=== PATIENT | female | born 1940 | race Caucasian/White ===

== ENCOUNTER 2023-03-31 11:26 | Emergency (ER) | payer MEDICARE, OTHER, SELFPAY ==
[2023-03-31 11:57] VITALS: BP 126/82
[2023-03-31 13:19] VITALS: BP 132/72
--- NOTE | 2023-03-31 14:16 | ED.GENMED ---
History of Present Illness
General
Chief Complaint: Fall
Time Seen by Provider: 03/31/23 13:00
Travel History
Have you had any contact with someone who has COVID-19?: No
Do you have any symptoms of coronavirus? Fever > 100 degrees, chills, cough, shortness of breath, sore throat, loss of taste or smell, muscle aches, or headache?: No
History of Present Illness
History of Present Illness:
83-year-old female with history of dementia presents to the emergency department with her for evaluation after mechanical fall. She apparently was walking out of a restaurant and tripped onto the asphalt and struck her face on the ground.
She braced her fall with her hands. She was able to get up and was able to ambulate afterward. She currently denies any complaints. There is a small laceration to the right upper lip with no active bleeding. Is not on any blood thinners
Past History
Past History
ED Past Medical History: HTN, Hypercholesterolemia and Other (Glaucoma, pneumonia, glaucoma, anemia)
ED Past Surgical History: Other (Cataract surgery,carpal tunnel)
Social History
Tobacco: Non-smoker
Alcohol: None
Drug: None
Personal:
Living: with family
Employment: Retired
Review of Systems
Review of Systems
Allergies reviewed?: Yes
All Other Systems: ROS reviewed and negative except as documented in HPI and ROS
Phy Exam
Physical Exam
Physical Exam:
GEN: Well appearing, NAD, WDWN
Eyes: PERRLA, EOMs intact, no scleral icterus
HENT: NCAT, oral mucosa moist, no midline cervical spine tenderness
Lungs: CTAB, no wheezes, rales, rhonchi, normal chest wall excursion
Cardiac: RRR, no M/R/G, no peripheral edema. Radial pulses 2+ bilat
Abdomen: S, NT, ND, NABS, no masses or hepatosplenomegaly
Neuro: Alert, oriented to baseline, follows commands, moves all extremities freely
MSK: No gross deformity or ecchymosis. No edema. No digital clubbing
Skin: No rashes, petechiae. Normal color, no pallor or jaundice.
Psych: Calm, cooperative, proper hygiene
Course
Orders/Labs/Results
Orders:
Orders
03/31/23 13:09
CT Head W/o Iv Contrast Urgent
Comment:
Reason For Exam: head trauma
03/31/23 15:25
US Pelvis Only (non-obstetric) Urgent
Comment:
Reason For Exam: vaginal bleeding
03/31/23 15:34
Complete Blood Count/With Diff Urgent
Comprehensive Metabolic Panel Urgent
Abnormal Lab Results
03/31/23
15:34
RBC 4.07 L 10^6/uL
(4.20-5.40)
Hgb 11.7 L g/dL
(12.0-16.0)
Hct 35.5 L %
(37.0-47.0)
Absolute Monos (auto) 0.7 H 10^3/uL
(0.1-0.6)
Monocytes % 10.0 H %
(1.7-9.3)
Total Protein 6.2 L g/dl
(6.3-8.2)
Albumin 3.0 L g/dl
(3.5-5.0)
03/31/23 15:34
03/31/23 15:34
Vital Signs
Initial and Last Documented VS:
Initial Vital Signs
Temp Pulse Resp BP Pulse Ox
98.9 F 89 20 126/82 99
03/31/23 11:57 03/31/23 11:57 03/31/23 11:57 03/31/23 11:57 03/31/23 11:57
Last Documented Vital Signs
Temp Pulse Resp BP Pulse Ox
98.9 F 81 16 134/77 97
03/31/23 11:57 03/31/23 17:31 03/31/23 17:31 03/31/23 17:31 03/31/23 17:31
MDM/Problems Addressed
MDM/Problems Addressed:
Ultrasound shows no evidence for clear malignancy however limited due to not being performed transvaginally. Recommend outpatient HEAD OF HUM[employer] RESOURCES follow-up. In regards to the fall she had a minor head injury with a negative CT scan.
*Critical Care Note
Total Time (30-74mins, 75-104mins- exclusive of procedures): Not Applicable
Update Note
Update Note:
1525: Pt reassessed, noted to have significant amount of vaginal bleeding. No evidence of external trauma to the pelvis or groin. Doubt this is related to trauma based on her mechanism. Will check labs and pelvic US
ED Attending Note
-
Portions of this chart may have been created with voice recognition software.� Occasional wrong word or��sound alike� substitutions may have occurred due to the inherent limitations of voice recognition software.
Discharge Plan
Departure
Patient Disposition: Home (Routine Discharge)
Date of Disposition: 03/31/23
Time of Disposition: 18:51
Patient with high blood pressure during this ER visit?: No
Discharge Problem:
Fall, Laceration of lip, Abnormal vaginal bleeding
Instructions: Laceration Repair With Glue (DC)
Prescriptions:
No Action
vitamins-lipotropics 1 TAB tablet
1 tab PO DAILY
calcium carbonate-vitamin D2 1 EACH tablet
1 tab PO DAILY
losartan 50 MG tablet
50 mg PO DAILY
atorvastatin 20 MG tablet
20 mg PO DAILY
raloxifene 60 MG tablet
60 mg PO DAILY
timolol maleate 1 DROP drops
1 drp BOTH EYES BID
glucosamine-chondroitin 1 EACH capsule
1 ea PO DAILY
multivitamin with folic acid [Tab-A-Sukhi] 1 TABLET tablet
1 tab PO DAILY
donepezil 5 MG tablet
5 mg PO HS Qty: 30 0RF
Referrals:
Ange Barrera MD [Family Provider] -
Benito Pascual MD [Active] -
Activity Restrictions/Additional Instructions:
The ultrasound was slightly abnormal however not diagnostic. Please follow-up with gynecology for further assessment
Interventions
Interventions:
*Risk Screen - Suicide Last Done: 03/31/23 12:25
*General Assessment Last Done: 03/31/23 12:25
*Neglect/Abuse Screening Last Done: 03/31/23 12:25
*ED COVID-19 Vaccine History Last Done: 03/31/23 12:25
ED-Musculoskeletal Assessment Last Done: 03/31/23 12:26
ED- Neurological Assessment Last Done: 03/31/23 12:26
ED-Skin Assessment Last Done: 03/31/23 12:26
--- NOTE | 2023-03-31 15:40 | EDRN ---
Pt noted to have some vaginal bleeding, denies falling on her bottom, denies hx of vaginal bleeding, denies any pain. Labs sent, pt is awaiting ultrasound.
[2023-03-31 15:43] VITALS: BP 140/64
[2023-03-31 16:00] LABS: % Basophils 0.9 % (0-2); % Eosinophils 1.4 % (0-6); % Immature Granulocytes 0.3 % (0-0.5); % Neutrophils 51.4 % (42.2-75.2); Absolute Basophils 0.1 10^3/uL (0-0.2); Absolute Eosinophils 0.1 10^3/uL (0-0.7); Absolute Lymphocytes 2.4 10^3/uL (1.2-3.4); Absolute Monocytes 0.7 10^3/uL (0.1-0.6); Absolute Neutrophils 3.4 10^3/uL (1.4-6.5); Hematocrit 35.5 % (37.0-47.0); Hemoglobin 11.7 g/dL (12.0-16.0); Mean Corpuscular Hgb 28.7 pg (27.0-31.0); Mean Corpuscular Volume 87.2 fL (81.0-99.0); Mean Platelet Volume 8.4 fL (7.4-10.4); Nucleated Red Blood Cells % 0 %; Platelet Count 298 10^3/uL (130-400); Red Blood Cell Count 4.07 10^6/uL (4.20-5.40); Red Cell Dist. Width 13.4 % (11.5-14.5); White Blood Cell Count 6.6 10^3/uL (4.8-10.8)
[2023-03-31 16:13] LABS: ALT (SGPT) 11 U/L (0-35); AST (SGOT) 21 U/L (14-36); Alkaline Phosphatase 96 U/L (38-126); Blood Urea Nitrogen 10 mg/dl (7-17); Calcium 8.9 mg/dl (8.4-10.2); Carbon Dioxide 28 mmol/L (22-30); Chloride 101 mmol/L (98-107); Glucose 80 mg/dl (70-99); Potassium 3.7 mmol/L (3.5-5.1); Sodium 136 mmol/L (135-145); Total Bilirubin 0.8 mg/dl (0.2-1.3); Total Protein 6.2 g/dl (6.3-8.2); eGFR > 60.00
[2023-03-31 17:31] VITALS: BP 134/77
== END 2023-03-31 19:23 | disposition home or self-care (01) ==
LOC: EMR 11:26
PROVIDERS: Physician Assistant; EMERGENCY PHYSICIAN Student in an Organized Health Care Education/Training Program; FAMILY PHYSICIAN Family Medicine
DX: S01.511A Laceration without foreign body of lip, initial encounter (principal); S09.90XA Unspecified injury of head, initial encounter; N93.9 Abnormal uterine and vaginal bleeding, unspecified; W01.0XXA Fall on same level from slipping, tripping and stumbling without subsequent striking against object, initial encounter; Y93.01 Activity, walking, marching and hiking; I10 Essential (primary) hypertension; E78.00 Pure hypercholesterolemia, unspecified; F03.90 Unspecified dementia, unspecified severity, without behavioral disturbance, psychotic disturbance, mood disturbance, and anxiety; H40.9 Unspecified glaucoma; D64.9 Anemia, unspecified
CPT/HCPCS: 99284; 70450; 76856; 80053; 85025

== ENCOUNTER → 2023-04-21 10:47 | Outpatient (REF) | payer MEDICARE, BC, SELFPAY | LOC: HWRAD 10:47 | PROVIDERS: ATTENDING PHYSICIAN Obstetrics & Gynecology; FAMILY PHYSICIAN Family Medicine | DX: N95.0 Postmenopausal bleeding (principal) | CPT/HCPCS: 76830; 76856 ==

== ENCOUNTER 2023-04-28 19:38 | Emergency (ER) | payer MEDICARE, BC, SELFPAY ==
[2023-04-28 19:39] VITALS: BP 162/94; BMI 25.4
[2023-04-28 20:00] LABS: % Basophils 1.3 % (0-2); % Eosinophils 2.2 % (0-6); % Immature Granulocytes 0.1 % (0-0.5); % Lymphocytes 41.3 % (20.5-51.1); % Monocytes 7.5 % (1.7-9.3); % Neutrophils 47.6 % (42.2-75.2); Absolute Basophils 0.1 10^3/uL (0-0.2); Absolute Eosinophils 0.2 10^3/uL (0-0.7); Absolute Lymphocytes 2.9 10^3/uL (1.2-3.4); Absolute Monocytes 0.5 10^3/uL (0.1-0.6); Absolute Neutrophils 3.3 10^3/uL (1.4-6.5); Hematocrit 37.6 % (37.0-47.0); Hemoglobin 12.1 g/dL (12.0-16.0); Mean Corp Hgb Conc. 32.2 g/dL (33.0-37.0); Mean Corpuscular Hgb 28.5 pg (27.0-31.0); Mean Corpuscular Volume 88.7 fL (81.0-99.0); Mean Platelet Volume 8.5 fL (7.4-10.4); Nucleated Red Blood Cells % 0 %; Platelet Count 287 10^3/uL (130-400); Red Blood Cell Count 4.24 10^6/uL (4.20-5.40); Red Cell Dist. Width 14.2 % (11.5-14.5); White Blood Cell Count 6.9 10^3/uL (4.8-10.8)
[2023-04-28 20:17] LABS: ALT (SGPT) 14 U/L (0-35); AST (SGOT) 23 U/L (14-36); Albumin 3.5 g/dl (3.5-5.0); Alkaline Phosphatase 102 U/L (38-126); Blood Urea Nitrogen 12 mg/dl (7-17); Calcium 8.7 mg/dl (8.4-10.2); Carbon Dioxide 28 mmol/L (22-30); Chloride 102 mmol/L (98-107); Glucose 162 mg/dl (70-99); Potassium 3.9 mmol/L (3.5-5.1); Sodium 135 mmol/L (135-145); Total Bilirubin 0.6 mg/dl (0.2-1.3); Total Protein 6.9 g/dl (6.3-8.2); eGFR > 60.00
[2023-04-28 20:36] VITALS: BP 121/60
[2023-04-28 21:00] VITALS: BP 120/53
--- NOTE | 2023-04-28 21:45 | ED.GENMED ---
History of Present Illness
General
Chief Complaint: Vaginal Bleeding
Source: family
Exam Limitations: none and dementia
Time Seen by Provider: 04/28/23 21:21
Travel History
Have you had any contact with someone who has COVID-19?: No
Do you have any symptoms of coronavirus? Fever > 100 degrees, chills, cough, shortness of breath, sore throat, loss of taste or smell, muscle aches, or headache?: No
History of Present Illness
History of Present Illness:
Patient is a 83-year-old female coming from home, history of dementia here with her . Patient spontaneously started having vaginal bleeding after a fall 1 month ago. She was seen here at the time was witnessed to have vaginal bleeding. She
had an ultrasound of her pelvis which showed a thickened endometrium. She was ultimately discharged home. Patient followed up with Dr. Benito Pascual from [facility] and had another ultrasound transvaginally and transabdominally
which confirmed that her endometrial stripe is thickened at 7 mm. This was done on 2�27. The said that he has not heard about this report yet. Spontaneously tonight she felt like she had to go the bathroom and when she went it was vaginal
bleeding. Her said it was a large amount in the toilet and even when she stood up she was continuing to bleed.
She is not on any blood thinners
As per her this was not a postcoital bleeding
Past History
Past History
ED Past Medical History: HTN, Hypercholesterolemia and Other (Glaucoma, pneumonia, glaucoma, anemia)
ED Past Surgical History: Other (Cataract surgery,carpal tunnel)
Social History
Tobacco: Non-smoker
Alcohol: None
Drug: None
Personal:
Living: with family
Employment: Retired
Phy Exam
Physical Exam
Physical Exam:
GENERAL: Alert , in no apparent distress, pleasantly demented
EYE: pupils equal and reactive
NECK: Supple
ENT: o/p clr, mmm.
CARDIAC: Regular rate and rhythm .
LUNGS: Clear breath sounds bilaterally, no acute respiratory distress, no wheezes/rales/rhonchi
ABDOMEN: Soft, without focal tenderness, no r/g, no cvat, normal bowel sounds
:
EXTERNAL trace evidence of blood but no active bleeding
no lacerations or contusions
internal exam reveals small amount of dark red blood in vault
no active bleeding
bimanual slightly uncomfortable but no cerivcal masses palpaed
neuro: oriented to person, place
SKIN: Warm and dry, skin intact.
PSYCH: Normal and appropriate interaction.
Course
Orders/Labs/Results
Orders:
Orders
04/28/23 19:46
CMP [Comprehensive Metabolic Panel] Urgent
Complete Blood Count/With Diff Urgent
Abnormal Lab Results
04/28/23
19:46
MCHC 32.2 L g/dL
(33.0-37.0)
Glucose 162 H mg/dl
(70-99)
04/28/23 19:46
04/28/23 19:46
Vital Signs
Initial and Last Documented VS:
Initial Vital Signs
Temp Pulse Resp BP Pulse Ox
97.8 F 88 24 162/94 100
04/28/23 19:39 04/28/23 19:39 04/28/23 19:39 04/28/23 19:39 04/28/23 19:39
Last Documented Vital Signs
Temp Pulse Resp BP Pulse Ox
97.8 F 88 24 126/59 99
04/28/23 19:39 04/28/23 19:39 04/28/23 19:39 04/28/23 23:00 04/28/23 21:45
MDM/Problems Addressed
Differential Diagnosis Includes:
endometrial hyperplasia, anemia
MDM/Problems Addressed:
83 y/o F dementaia
here with for spontaneous vaginal bleeding otnight
sounds as if the amount was concerning to
had episode 1 mo ago and has known hpyerplasia
has not developed plan for d&c and bx yet
no thinners
well appearing
this did not start today post coital or trauma
she has mild blood in vault withotu active bleeding
stable BP an dhg imrpoved from last month
d/w abiel who reviewed pt's notes form the office last week
she recommended that pt be discharged and she olmos ee pt tomorrow at 1 pm in the office
is ok with that plan, though apprehensive
pt was able to stand and get dressed without any bleeding.
*Critical Care Note
Total Time (30-74mins, 75-104mins- exclusive of procedures): Not Applicable
ED Attending Note
-
Portions of this chart may have been created with voice recognition software.� Occasional wrong word or��sound alike� substitutions may have occurred due to the inherent limitations of voice recognition software.
Discharge Plan
Departure
Patient Disposition: Home (Routine Discharge)
Date of Disposition: 04/28/23
Time of Disposition: 23:13
Patient with high blood pressure during this ER visit?: No
Condition: Fair
Covid-19: Not Applicable
Discharge Problem:
Abnormal vaginal bleeding in postmenopausal patient
Instructions: Bleeding After Menopause
Prescriptions:
No Action
vitamins-lipotropics 1 TAB tablet
1 tab PO DAILY
calcium carbonate-vitamin D2 1 EACH tablet
1 tab PO DAILY
losartan 50 MG tablet
50 mg PO DAILY
atorvastatin 20 MG tablet
20 mg PO DAILY
raloxifene 60 MG tablet
60 mg PO DAILY
timolol maleate 1 DROP drops
1 drp BOTH EYES BID
glucosamine-chondroitin 1 EACH capsule
1 ea PO DAILY
multivitamin with folic acid [Tab-A-Sukhi] 1 TABLET tablet
1 tab PO DAILY
donepezil 5 MG tablet
5 mg PO HS Qty: 30 0RF
Referrals:
Ange Barrera MD [Family Provider] -
Millie White, [Active] - Tomorrow (YOU HAVE AN APPOINTMENT AT 1 PM)
Activity Restrictions/Additional Instructions:
Molly needs a biopsy of her endometrium to evaluate for the possibility of cancer as a cause for her vaginal bleeding. Her blood count was stable and her blood pressure was normal. She could continue to bleed. If this is worrisome to you, you
think it is large volume or she is passing out you should return to the ER immediately, call 911. Otherwise you should go directly to Dr. White s office tomorrow at 1 PM and she will see you.
Interventions
Interventions:
*Risk Screen - Suicide Last Done: 04/28/23 19:39
*General Assessment Last Done: 04/28/23 23:27
*Neglect/Abuse Screening Last Done: 04/28/23 19:39
ED- Fall Risk Assessment Last Done: 04/28/23 20:46
*ED COVID-19 Vaccine History Last Done: 04/28/23 20:32
*Nursing Disposition Last Done: 04/28/23 23:26
ED-Female Genitourinary Assessment Last Done: 04/28/23 20:43
Discharge Date and Time
Discharge Date/Time: 04/28/23 23:27
[2023-04-28 22:00] VITALS: BP 129/55
[2023-04-28 22:53] VITALS: BP 129/68
[2023-04-28 23:00] VITALS: BP 126/59
== END 2023-04-28 23:27 | disposition home or self-care (01) ==
LOC: EMR 19:38
PROVIDERS: Emergency Medicine; EMERGENCY PHYSICIAN Emergency Medicine; FAMILY PHYSICIAN Family Medicine
DX: N95.0 Postmenopausal bleeding (principal)
CPT/HCPCS: 99283; 80053; 85025

== ENCOUNTER 2023-05-07 06:30 | Day surgery (SDC) | payer MEDICARE, BC, SELFPAY ==
[2023-05-05 09:10] VITALS: BMI 29.4
[2023-05-07] VITALS (8 sets, daily range): BP systolic 124–146; BP diastolic 54–72; BMI 29.4
[2023-05-07] MEDS: NORMOSOL-R 1000 IV (08:07)
--- NOTE | 2023-05-07 09:17 | W.IMMPOSTOP ---
Surgical Immed Post Op Note
-
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
Postoperative Diagnosis: Same
Surgeon: Vlad Read M.D.
Operation: Left Superior Parathyroidectomy - 86826
Anesthesia: GET
Estimated Blood Loss: 5 cc
Drains: None
Specimen: Left superior and inferior neck nodules, rule out parathyroid adenoma
Complications: None
Procedure:
The patient was taken to the operating room and placed in the usual supine position. After adequate general endotracheal anesthesia was established, the patient's neck was extended, prepped, and draped in the typical sterile fashion. A 4 cm
transcervical incision was made two fingerbreadths above the sternal notch. The skin incision was made with the #15 blade, and this was taken through the skin into the subcutaneous tissue. The underlying platysma muscle was divided, and subplatysmal
flaps were created superiorly to the thyroid cartilage and inferiorly to the sternal notch. Strap muscles were identified and at the midline.
The attention was turned to the left side of the neck. The left thyroid lobe was mobilized medially. During this process, the left recurrent laryngeal nerve was identified and preserved throughout the surgery. The left upper and lower neck nodules
were identified and noted to be enlarged, excised, and sent to the pathology department, which showed a hypercellular left superior parathyroid gland and benign thyroid nodule. The intraoperative PTH levels normalized.
After obtaining adequate hemostasis, the strap muscles were reapproximated with #3-0 Vicryl in a running fashion. The platysma muscle was reapproximated with #3-0 Vicryl in an interrupted fashion, and the skin was approximated with #4-0 Monocryl in
a running subcuticular fashion. The Steri-Strips and sterile dressings were placed. The patient tolerated the procedure well. The final instrument, needle, and sponge counts were correct. The patient was extubated and transferred to the PACU.
Assisting Surgeon:
Pre-op Diagnosis:
Post-op Diagnosis:
Procedure Performed:
Anesthesia Type:
Specimen / Cultures:
Estimated Blood Loss:
Complications:
Operative Findings:
--- NOTE | 2023-05-07 09:21 | W.IMMPOSTOP ---
Surgical Immed Post Op Note
-
Primary Surgeon: Millie White DO
Assisting Surgeon: none
Pre-op Diagnosis: postmenopausal bleeding, thickened endometrium
Post-op Diagnosis: same; 2 endometrial polyps
Procedure Performed: Hysteroscopy D&C; polypectomy with ultrasound guidance
Anesthesia Type: general LMA Dr. Garcia
Specimen / Cultures: 1. ecc 2. endometrial curettings and polyp and resected fragments of polyp
Estimated Blood Loss: 2ml
Fluid deficit 0ml
Complications: none
Operative Findings: Uterus sounded to 7cm; 2 endometrial polyps noted in endometrial cavity, bilateral tubal ostia seen. Urethral caruncle noted-soft and compressible.
Counts correct times 2.
Stable to recovery.
== END 2023-05-07 11:31 | disposition home or self-care (01) ==
LOC: SDS 06:30
PROVIDERS: ATTENDING PHYSICIAN Obstetrics & Gynecology
DX: N95.0 Postmenopausal bleeding (principal); N85.00 Endometrial hyperplasia, unspecified; N85.8 Other specified noninflammatory disorders of uterus
CPT/HCPCS: 58558; 88305; 76998

== ENCOUNTER 2023-05-17 01:55 | Observation (INO) | payer MEDICARE, BC, SELFPAY ==
[2023-05-16 19:37] VITALS: BP 166/93; BMI 24.7
--- NOTE | 2023-05-16 20:02 | ED.GENMED ---
History of Present Illness
General
Chief Complaint: Vaginal Bleeding
Source: patient and spouse
Exam Limitations: none
Time Seen by Provider: 05/16/23 19:49
Travel History
Have you had any contact with someone who has COVID-19?: No
Do you have any symptoms of coronavirus? Fever > 100 degrees, chills, cough, shortness of breath, sore throat, loss of taste or smell, muscle aches, or headache?: No
History of Present Illness
History of Present Illness:
See MDM
Past History
Past History
ED Past Medical History: HTN, Hypercholesterolemia and Other (Glaucoma, pneumonia, glaucoma, anemia)
ED Past Surgical History: Other (Cataract surgery,carpal tunnel)
Social History
Tobacco: Non-smoker
Alcohol: None
Drug: None
Personal:
Living: with family
Employment: Retired
Phy Exam
Physical Exam
Physical Exam:
See MDM
Course
Orders/Labs/Results
Orders:
Orders
05/16/23 20:03
Type+Screen Urgent
Complete Blood Count/With Diff Urgent
Comprehensive Metabolic Panel Urgent
PTT Urgent
Prothrombin Time Urgent
05/16/23 23:21
Complete Blood Count/With Diff Urgent
Abnormal Lab Results
05/16/2324
20:03 23:21
RBC 3.96 L 10^6/uL 3.50 L 10^6/uL
(4.20-5.40) (4.20-5.40)
Hgb 11.4 L g/dL 10.1 L g/dL
(12.0-16.0) (12.0-16.0)
Hct 34.3 L % 29.8 L %
(37.0-47.0) (37.0-47.0)
RDW 14.8 H % 14.9 H %
(11.5-14.5) (11.5-14.5)
Absolute Monos (auto) 0.7 H 10^3/uL
(0.1-0.6)
Monocytes % 10.5 H %
(1.7-9.3)
Sodium 133 L mmol/L
(135-145)
Glucose 184 H mg/dl
(70-99)
Albumin 3.4 L g/dl
(3.5-5.0)
05/16/23 23:21
05/16/23 20:03
Vital Signs
Initial and Last Documented VS:
Initial Vital Signs
Temp Pulse Resp BP Pulse Ox
98.6 F 119 20 166/93 99
05/16/23 19:37 05/16/23 19:37 05/16/23 19:37 05/16/23 19:37 05/16/23 19:37
Last Documented Vital Signs
Temp Pulse Resp BP Pulse Ox
98.6 F 86 20 138/61 97
05/16/23 19:37 05/16/23 21:47 05/16/23 19:37 05/16/23 21:47 05/16/23 21:47
MDM/Problems Addressed
Differential Diagnosis Includes:
HPI and MDM Narrative:
83-year-old female presenting for evaluation of vaginal bleeding. She stood up from the bathroom and the blood started coming out of her vagina. Patient had D&C and polypectomy performed 11 days ago. She has had minimal spotting since the
procedure. She denies any trauma or exertion. They placed a pad she department immediately. When she arrived, I evaluated the bleeding with nurse biomedical service engineer Meli. There is small clots in the vagina but no active bleeding noted. Her bleeding
is likely related to the recent polypectomy. She is not on thinners. BUILDING MOVER curb sided and agrees
Physical exam
General: Well appearing and non-toxic
HEENT: protecting airway
Neck: appears supple
CV: No evidence of cyanosis
Resp: No accessory muscle use
Abd: Non-distended and nontender
BUILDING MOVER: Small clots noted in the vagina. No active bleed
Extremities: No deformities
Neuro: alert
Psych: Normal affect
Skin: Intact
Problems Addressed including Acute and Chronic Conditions affecting care:
1. Vaginal bleeding
Acuity: acute
Prognosis: stable
Details: Likely related to recent polypectomy. Will repeat blood work looking for any evidence of anemia. Patient is otherwise well-appearing nontoxic
Updates
Hemoglobin stable. On multiple reassessments, there has been no more bleeding. I ambulated the patient and there was a small amount of bleeding.
requesting to speak to BUILDING MOVER. BUILDING MOVER had a phone conversation with the patient and I will repeat the hemoglobin and discharge if there is no changes. The bleeding is minimal and expected per BUILDING MOVER
Differential Diagnosis (but not limited to): Dysfunctional uterine bleeding, bleeding from polypectomy site
Testing considered: Repeat ultrasound
Drug therapy (if applicable): OTC meds, please see d/c instruction regarding Rx drugs
Amount and/or Complexity of Data Reviewed
Clinical info obtained from: Patient
External data reviewed: Less than 2 weeks ago, patient had D&C and polypectomy
Labs I independently reviewed (but not limited to): Hemoglobin stable
Radiology: N/A
Pulse Ox: not hypoxic
EKG independently reviewed: N/A
Race Relations Adviser: N/A
Critical Care: N/A
Risk of Complication:
Social Determinants of health: Good social support
Discussed with other providers: BUILDING MOVER
Escalation of Care includes Admit/Obs: After being observed in the Emergency Department, pt stable for discharge.
Occasional wrong word or 'sound a like' substitutions may have occurred due to the inherent limitations of voice recognition software. Read the chart carefully and recognize, using context, where substitutions have occurred.
*Critical Care Note
Total Time (30-74mins, 75-104mins- exclusive of procedures): Not Applicable
ED Attending Note
-
Portions of this chart may have been created with voice recognition software.� Occasional wrong word or��sound alike� substitutions may have occurred due to the inherent limitations of voice recognition software.
Discharge Plan
Departure
Patient Disposition: Admit
Date of Disposition: 05/16/23
Time of Disposition: 22:03
Admit to: Med/Surg
Presentation/result/management discussed w/ accepting MD/DO: Hospitalist
Patient with high blood pressure during this ER visit?: No
Discharge Problem:
Postoperative vaginal bleeding
Prescriptions:
No Action
vitamins-lipotropics 1 TAB tablet
1 tab PO DAILY
calcium carbonate-vitamin D2 1 EACH tablet
1 tab PO DAILY
losartan 50 MG tablet
50 mg PO DAILY
atorvastatin 20 MG tablet
20 mg PO DAILY
raloxifene 60 MG tablet
60 mg PO DAILY
timolol maleate 1 DROP drops
1 drp BOTH EYES BID
glucosamine-chondroitin 1 EACH capsule
1 ea PO DAILY
multivitamin with folic acid [Tab-A-Sukhi] 1 TABLET tablet
1 tab PO DAILY
donepezil 5 MG tablet
5 mg PO HS Qty: 30 0RF
Cytotec
1 tab PO .PERPROTOCOL
Referrals:
Ange Barrera MD [Family Provider] -
Interventions
Interventions:
*Risk Screen - Suicide Last Done: 05/16/23 19:37
*Neglect/Abuse Screening Last Done: 05/16/23 19:37
*ED COVID-19 Vaccine History Last Done: 05/16/23 19:37
ED-Female Genitourinary Assessment Last Done: 05/16/23 20:08
[2023-05-16 20:13] LABS: % Basophils 1.2 % (0-2); % Eosinophils 1.9 % (0-6); % Immature Granulocytes 0.2 % (0-0.5); % Monocytes 8.9 % (1.7-9.3); % Neutrophils 51.8 % (42.2-75.2); Absolute Basophils 0.1 10^3/uL (0-0.2); Absolute Eosinophils 0.1 10^3/uL (0-0.7); Absolute Lymphocytes 2.3 10^3/uL (1.2-3.4); Absolute Monocytes 0.6 10^3/uL (0.1-0.6); Absolute Neutrophils 3.3 10^3/uL (1.4-6.5); Hematocrit 34.3 % (37.0-47.0); Hemoglobin 11.4 g/dL (12.0-16.0); Mean Corp Hgb Conc. 33.2 g/dL (33.0-37.0); Mean Corpuscular Hgb 28.8 pg (27.0-31.0); Mean Corpuscular Volume 86.6 fL (81.0-99.0); Mean Platelet Volume 8.6 fL (7.4-10.4); Nucleated Red Blood Cells % 0 %; Platelet Count 273 10^3/uL (130-400); Red Blood Cell Count 3.96 10^6/uL (4.20-5.40); Red Cell Dist. Width 14.8 % (11.5-14.5); White Blood Cell Count 6.4 10^3/uL (4.8-10.8)
[2023-05-16 20:23] LABS: INR 1.08; PT 13.8 Sec (11.4-14.6)
[2023-05-16 20:27] LABS: ALT (SGPT) 19 U/L (0-35); AST (SGOT) 26 U/L (14-36); Albumin 3.4 g/dl (3.5-5.0); Alkaline Phosphatase 95 U/L (38-126); Blood Urea Nitrogen 14 mg/dl (7-17); Calcium 8.5 mg/dl (8.4-10.2); Carbon Dioxide 26 mmol/L (22-30); Chloride 102 mmol/L (98-107); Estimated Creatinine Clearance 54 ml/min; Glucose 184 mg/dl (70-99); Potassium 3.6 mmol/L (3.5-5.1); Sodium 133 mmol/L (135-145); Total Bilirubin 0.8 mg/dl (0.2-1.3); Total Protein 6.5 g/dl (6.3-8.2); eGFR > 60.00
[2023-05-16 21:47] VITALS: BP 138/61
[2023-05-16 23:28] LABS: % Basophils 1.3 % (0-2); % Immature Granulocytes 0.3 % (0-0.5); % Lymphocytes 38.8 % (20.5-51.1); % Monocytes 10.5 % (1.7-9.3); % Neutrophils 47.1 % (42.2-75.2); Absolute Basophils 0.1 10^3/uL (0-0.2); Absolute Eosinophils 0.1 10^3/uL (0-0.7); Absolute Lymphocytes 2.7 10^3/uL (1.2-3.4); Absolute Monocytes 0.7 10^3/uL (0.1-0.6); Absolute Neutrophils 3.3 10^3/uL (1.4-6.5); Hematocrit 29.8 % (37.0-47.0); Hemoglobin 10.1 g/dL (12.0-16.0); Mean Corp Hgb Conc. 33.9 g/dL (33.0-37.0); Mean Corpuscular Hgb 28.9 pg (27.0-31.0); Mean Corpuscular Volume 85.1 fL (81.0-99.0); Mean Platelet Volume 8.4 fL (7.4-10.4); Nucleated Red Blood Cells % 0 %; Platelet Count 238 10^3/uL (130-400); Red Cell Dist. Width 14.9 % (11.5-14.5); White Blood Cell Count 6.9 10^3/uL (4.8-10.8)
[2023-05-17 00:18] VITALS: BP 138/67
--- NOTE | 2023-05-17 01:07 | HPS.HSE ---
Addendum entered and electronically signed by Cee Chavira DO 05/17/23 07:53:
EXTRACTOR PLANT OPERATOR addendum:
Agree with SOFTWARE ADMINISTRATOR admission H&P. Discussed patient history with patient's on the phone overnight. Also, discussed patient with ER physician to relay plan for at least overnight observation with repeat labs in the AM. Though H/H has dropped
slightly since initial presentation, per ER doc bleeding is not brisk or active on exam and patient has remained comfortable and hemodynamically stable. Imaging was not repeated at this time, since patient had US-guided HSC/polypectomy on 05/04, but
can consider repeating pelvic US if bleeding remains acute concern overnight. I will see and examine pt in the AM.
DO Leola
Original Note:
Family Physician
-
Family Physician: Ange Barrera
Chief Complaint
-
Vaginal bleeding
History of Present Illness
Patient is an 83 year-old female with past medical history significant for HTN, hyperlipidemia, and Alzheimer's. She presented to ED with her for evaluation of new onset vaginal bleeding. Patient presented AAO with forgetfulness, history and
HPI obtained from at bedside. He stated patient a few weeks ago had D&C with polypectomy 11 days ago, had minimal postoperative bleeding and no other complaints. Today patient went to bathroom and stated she had significant bleeding
that was dripping to floor when she stood up. Currently, patient has noted bleeding at exam. While present in ED patient had mild decrease in hemoglobin, OBGYN requested admit for observation to repeat CBC in 6 hours. Patient and spouse deny patient
having any chest discomfort, shortness of breathe, cough, fever, chills, urinary symptoms, constipation or diarrhea.
Medical History
Past Medical History
Past Medical History: Reports Dementia (Alzheimer's), HTN and Hypercholesterolemia
Past Surgical History: Reports Gynocological (D&C with polypectomy, tubal ) and Orthopedic (carpel tunnel)
Social History
Unable to obtain full social history at this time due to: Dementia
Tobacco: Non-smoker
Alcohol: None
Drug: None
Personal:
Living: With Family
Employment: Retired
Family History
Family History: Not pertinent
Allergies / Home Medications
Allergies reflects when Allergies were last updated in [facility].
Home Medications with original date entered in [facility]
Allergy/Medication List:
Allergies
Allergy/AdvReac Type Severity Reaction Status Date / Time
No Known Allergies Allergy Verified 05/16/23 19:39
Home Medications Table - record
Medication Instructions Recorded Confirmed
losartan 50 mg tablet 50 mg PO DAILY 10/13/17 05/17/23
timolol maleate 0.5 % eye drops 1 drp BOTH EYES BID 10/13/17 05/17/23
atorvastatin 40 mg tablet 40 mg PO DAILY 05/17/23 05/17/23
raloxifene 60 mg tablet (Evista) 60 mg PO DAILY 05/17/23 05/17/23
Review of Systems
-
Unable to obtain full review of systems at this time due to: Dementia
History Source: Patient and Family
A 12 point ROS was completed and negative except as noted: Yes
Constitutional: Reports No Symptoms and See HPI
EENT: Reports No Symptoms and See HPI
Respiratory: Reports No Symptoms and See HPI
Cardiac: Reports No Symptoms and See HPI
Abdomen/GI: Reports No Symptoms and See HPI
: Reports Bleeding
Musculoskeletal: Reports No Symptoms and See HPI
Skin: Reports No Symptoms and See HPI
Neurological: Reports No Symptoms and See HPI
Endocrine: Reports No Symptoms and See HPI
Hematologic/Lymphatic: Reports No Symptoms and See HPI
Psych: Reports No Symptoms, See HPI and Calm
Physical Exam
Vital Signs
Vital Signs
Temp Pulse Resp BP Pulse Ox
98.8 F 84 16 138/67 95
05/17/23 00:18 05/17/23 00:18 05/17/23 00:18 05/17/23 00:18 05/17/23 00:18
Physical Exam
General: Well Developed, Well Nourished, No Apparent Distress, Comfortable and Conversant
HEENT: NormoCephalic, Moist mucous membranes, Atraumatic, Good Dentition, PERRLA, Leighton Conjunctivae, Nose Appears Normal and Ears Appear Normal
Respiratory: Clear and Non Labored Respirations
Cardiac: S1/S2 and Regular Rhythm
Breast: Deferred by me
GI: Soft, Non Tender, Non Distended and Normal Bowel Sounds
Rectal: Deferred by Provider
Genito-urinary: No costovertebral tender
Musculoskeletal: No Clubbing, No Cyanosis and No Edema
Skin: Warm, Dry and IV/Catheter Site
Neuro: Awake, Alert, Oriented (x3 with observed confusion/forgetfullness) and Cranial Nerves Intact
Hematologic/Lymphatic: No Lymphadenopathy
Psych: Calm and Confused
Laboratory Results
-
05/16/23 23:21
05/16/23 20:03
Laboratory Results
PT 13.8 Sec (11.4-14.6) 05/16/23 20:03
INR 1.08 05/16/23 20:03
APTT 28.0 Sec (23.4-35.0) 05/16/23 20:03
Total Bilirubin 0.8 mg/dl (0.2-1.3) 05/16/23 20:03
AST 26 U/L (14-36) 05/16/23 20:03
ALT 19 U/L (0-35) 05/16/23 20:03
Alkaline Phosphatase 95 U/L (38-126) 05/16/23 20:03
Data Reviewed
-
Lab Data: Labs Reviewed by me, Discussed with Physician, Discussed with Nurse and Discussed with Family
Impression/Plan
-
IMPRESSION:
Patient is an 83 year-old female with past medical history significant for HTN, hyperlipidemia, and Alzheimer's. She presented to ED with her for evaluation of new onset vaginal bleeding. Patient presented AAO with forgetfulness, history and
HPI obtained from at bedside. He stated patient a few weeks ago had D&C with polypectomy 11 days ago, had minimal postoperative bleeding and no other complaints. Today patient went to bathroom and stated she had significant bleeding
that was dripping to floor when she stood up. Currently, patient has noted bleeding at exam. While present in ED patient had mild decrease in hemoglobin, OBGYN requested admit for observation to repeat CBC in 6 hours. Patient and spouse deny patient
having any chest discomfort, shortness of breathe, cough, fever, chills, urinary symptoms, constipation or diarrhea.
PLAN:
#Vaginal bleeding
- monitor CBC for anemia
#Hypertension
- continue Losartan
#HLD
- continue Atorvastatin
#Alzheimer's
NPO
DNR
DVT Prophylaxis: SCDs
[2023-05-17 02:00] VITALS: BP 130/62
[2023-05-17 02:14] VITALS: BMI 25.3
[2023-05-17 02:15] VITALS: BP 143/86
[2023-05-17 07:24] VITALS: BP 143/70
[2023-05-17 07:49] LABS: INR 1.13; PT 14.4 Sec (11.4-14.6)
[2023-05-17 07:50] LABS: APTT 30.3 Sec (23.4-35.0)
[2023-05-17 07:53] LABS: Hematocrit 32.3 % (37.0-47.0); Hemoglobin 10.6 g/dL (12.0-16.0); Mean Corp Hgb Conc. 32.8 g/dL (33.0-37.0); Mean Corpuscular Hgb 28.5 pg (27.0-31.0); Mean Corpuscular Volume 86.8 fL (81.0-99.0); Mean Platelet Volume 8.7 fL (7.4-10.4); Platelet Count 267 10^3/uL (130-400); Red Blood Cell Count 3.72 10^6/uL (4.20-5.40); Red Cell Dist. Width 14.8 % (11.5-14.5); White Blood Cell Count 5.6 10^3/uL (4.8-10.8)
--- NOTE | 2023-05-17 08:19 | W.PN.GYN ---
Today's Communication / Plan
-
-Advance diet to reg
-Anticipate d/c home today after pt's comes back to hospital. Will arrange for close follow-up in the office
-Continue home meds for hypercholesterolemia, HTN and dementia
Physician Note
-
83yo F POD12 s/p uncomplicated hysteroscopic polypectomy/D&C for PMB (benign pathology), admitted for observation overnight due to vaginal bleeding and slight drop in H/H while in the ER. Patient's very concerned about the amount of bleeding
patient was having yesterday evening, 'soaking pads,' vs. the minimal bleeding she had just after the surgery.
Overnight, pt did well. Got up and voided and had a normal BM at 0500. Just a small amount of brown/old blood on the pad overnight, and only a scant streak of brown spotting noted when patient wiped at time of using the restroom. Patient denies any
current heavy bleeding, any pain, any feeling of being unwell, dizzy or faint. Denies CP, palpitations, SOB, leg pain. Due to Alzheimer's dementia, HPI obtained at bedside with patient and with help of RN who received report of overnight events from
off-going nursing staff.
VSS- see below
Gen: NAD, WD/WN
Skin: warm, dry, no pallor
Abd: soft, NTTP, ND
: NEFG with expected atrophic changes, Bimanual: no pelvic mass, no red blood on exam glove (only scant brown blood), no clots or blood in the vaginal vault; peripad with a small amount of red/brown blood on it (not changed since prior to coming
from the ER 6hrs ago)
Extr: no TTP
Labs-- see below. Hct 34.3 (@1999)-> 29.8 (@2320) -> 32.3 (@0658)
Baseline hct 33.6 (on 05/04)
PLTs wnl
Coags wnl
A/P 83yo F POD12 s/p uncomplicated hysteroscopic polypectomy/D&C for PMB with episode of increased VB last night. Pt's H/H increased this morning and coags are normal. Remains asymptomatic for anemia and hemodynamically stable. Bleeding scant
overnight and no e/o active bleeding on limited pelvic exam this morning.
-Advance diet to reg
-Anticipate d/c home today after pt's comes back to hospital. Will arrange for close follow-up in the office
-Continue home meds for hypercholesterolemia, HTN and dementia
JBraden, DO
Vital Signs / Labs
-
Vital Signs and Labs:
Temp Pulse Resp BP Pulse Ox
98.0 F 90 16 143/70 96
05/17/23 07:24 05/17/23 07:24 05/17/23 07:24 05/17/23 07:24 05/17/23 07:24
05/17/23 06:58
05/16/23 20:03
05/16/23 05/16/23 05/17/23
20:03 23:21 06:58
RBC 3.96 L 3.50 L 3.72 L
Hgb 11.4 L 10.1 L 10.6 L
Hct 34.3 L 29.8 L 32.3 L
MCHC 32.8 L
RDW 14.8 H 14.9 H 14.8 H
Absolute Monos (auto) 0.7 H
Monocytes % 10.5 H
Sodium 133 L
Glucose 184 H
Albumin 3.4 L
SURGICAL PATHOLOGY:
FINAL DIAGNOSIS
A. Endometrium, curettings and polyp, dilation and curettage:
? Endometrium with polypoid cystic atrophy.
? Squamous mucosa with no significant pathological abnormalities.
B. Endocervix, biopsy:
? Squamous mucosa and endocervical mucosa with no significant pathological
abnormalities.
CPT Code: 82272i3
Dictated by: Jose Negrete MD
SUBMITTED
TISSUES:
A. Endometrium, NOS - ENDOMETRIAL CURETTINGS/POLYP
B. Endocervix - ENDOCERVICAL BIOPSY
CLINICAL HISTORY
Pre-Operative Diagnosis: Postmenopausal bleeding
Post-Operative Diagnosis: Same as above
Operation/Procedure: D&C, hysteroscopy
Clinical History: Same as above
-GROSS DESCRIPTION-
Specimen received in two container(s) labeled with the patient's name, medical record number
and date of .
[2023-05-17] MEDS: LIPITOR 40 MG PO (09:08)
[2023-05-17] MEDS: COZAAR 50 MG PO (09:08)
[2023-05-17] MEDS: TIMOPTIC 0.5% OPHTHALMIC SOLUTION 1 DROP BOTH EYES (09:37)
[2023-05-17] MEDS: EVISTA 60 MG PO (09:37)
[2023-05-17 10:37] VITALS: BMI 25.3
--- NOTE | 2023-05-17 11:45 | W.PN.UPDATE ---
Update Note
Progress Note Update
in to speak with patient and with RN also present. Pt's bleeding has been scant throughout the morning. She continues to feel well without any pain or notable heavy bleeding. VS remain stable.
D/c home in stable condition. Reviewed with and patient return/ER precautions for heavy bleeding or other acute concerns. I told the I will inform the office staff Thursday morning to touch base with them about a follow-up in the
office. He feels comfortable with this plan.
Tomas Chavira, DO
== END 2023-05-17 12:15 | disposition home or self-care (01) ==
LOC: 4 WEST ACU 01:55
PROVIDERS: Nurse Practitioner Family; ADMITTING PHYSICIAN Obstetrics & Gynecology; EMERGENCY PHYSICIAN Student in an Organized Health Care Education/Training Program; FAMILY PHYSICIAN Family Medicine
DX: N99.820 Postprocedural hemorrhage of a genitourinary system organ or structure following a genitourinary system procedure (principal); I10 Essential (primary) hypertension; E78.00 Pure hypercholesterolemia, unspecified; D64.9 Anemia, unspecified; N95.0 Postmenopausal bleeding; N84.0 Polyp of corpus uteri; E78.5 Hyperlipidemia, unspecified; G30.9 Alzheimer's disease, unspecified; F02.80 Dementia in other diseases classified elsewhere, unspecified severity, without behavioral disturbance, psychotic disturbance, mood disturbance, and anxiety; Z66 Do not resuscitate; Z87.01 Personal history of pneumonia (recurrent)
CPT/HCPCS: 80053; 85025; 85027; 85610; 85730; 86850; 86900; 86901; 99284; G0378

== ENCOUNTER 2023-05-28 23:36 | Observation (INO) | payer MEDICARE, BC, SELFPAY ==
[2023-05-28 19:47] VITALS: BP 152/84
[2023-05-28 20:19] VITALS: BMI 25.2
--- NOTE | 2023-05-28 20:31 | ED.GENMED ---
History of Present Illness
General
Chief Complaint: Vaginal Bleeding
Source: patient and spouse
Exam Limitations: none
Time Seen by Provider: 05/28/23 19:58
Travel History
Have you had any contact with someone who has COVID-19?: No
Do you have any symptoms of coronavirus? Fever > 100 degrees, chills, cough, shortness of breath, sore throat, loss of taste or smell, muscle aches, or headache?: No
History of Present Illness
History of Present Illness:
This is a 83 year old female that comes in with c/o vaginal bleeding. states that this is the 4th visit here for the same thing. States that she has a polyp removed from the Uterus and she had some bleeding before and then it stopped. Today
she was fine until this evening when she called him and toilet was full of blood and it had gone throw her pants. States that he was told that the scab may have come off but to bring her to the ER. States that this is bright red blood. Denies any
fever, chills, chest pain, SOB, abd pain, nausea, vomiting, diarrhea, headache, dizziness, urinary burning.
Past History
Past History
ED Past Medical History: HTN, Hypercholesterolemia and Other (Glaucoma, pneumonia, glaucoma, anemia, Alzheimers, )
ED Past Surgical History: Gynecological (Uterine polyp removed. Tubal, ), Orthopedic (Bilateral carpal tunnel) and Other (Cataract surgery, carpal tunnel)
Social History
Tobacco: Non-smoker
Alcohol: None
Drug: None
Personal:
Living: with family
Employment: Retired
Review of Systems
Review of Systems
All Other Systems: ROS reviewed and negative except as documented in HPI and ROS
Constitutional: Reports no symptoms; Denies fever or chills
EENT: Reports no symptoms
Respiratory: Reports no symptoms; Denies cough or trouble breathing
Cardiac: Reports no symptoms; Denies chest pain
ABD/GI: Reports no symptoms; Denies abdominal pain, nausea, vomiting or diarrhea
: Reports bleeding (vaginal bleeding bright red)
Musculoskeletal: Reports no symptoms
Skin: Reports no symptoms
Neurological: Reports no symptoms; Denies dizzy or headache
Psychiatric: Reports no symptoms
Phy Exam
General Physical Exam
General Presentation: well appearing and no apparent distress
General age: appears stated age
General Skin: warm and dry
General Habitus: elderly
General Mental: usual mental status
General Hydration: appears well hydrated
ENT Exam
ENT Exam: TM's normal, pharynx normal and neck supple
Eye Exam
Eye Exam: EOMI
Cardiovascular Exam
Cardiovascular Exam: regular rate/rhythm, no edema and normal peripheral pulses
Pulmonary Exam
Pulmonary Exam: lungs clear, no respiratory distress, no rales, chest non tender, no crackles, no rhonchi, no wheezing and no cough
Gastrointestinal Exam
Gastrointestinal Exam: normal bowel sounds, non tender, soft, no organomegaly, no pulsatile mass and non distended
Genitourinary Exam Female
Vaginal Bleeding: clots and moderate (pad soaked clots noted)
Musculoskeletal Exam
Musculoskeletal Exam: full ROM and no edema
Skin Exam
Skin Exam: normal color, warm/dry, no rash and no petechia
Psychiatric Exam
Psychiatric Exam: normal mood/affect
Course
Orders/Labs/Results
Orders:
Orders
05/28/23 20:30
US Pelvis W Transvag Combined Urgent
Comment: Polyp removed recently
Reason For Exam: vaginal bleeding
05/28/23 20:35
Type+Screen Urgent
Complete Blood Count/With Diff Urgent
Comprehensive Metabolic Panel Urgent
PTT Urgent
Prothrombin Time Urgent
05/28/23 21:25
Consult POLYSOMNOGRAPHY TECHNICIAN [POLYSOMNOGRAPHY TECHNICIAN CONSULT] Urgent
Consulting Provider: Benito Pascual
Was physician already notified: Yes
Abnormal Lab Results
05/28/23
20:35
RBC 4.04 L 10^6/uL
(4.20-5.40)
Hgb 11.9 L g/dL
(12.0-16.0)
Hct 34.8 L %
(37.0-47.0)
RDW 14.8 H %
(11.5-14.5)
Sodium 134 L mmol/L
(135-145)
Glucose 107 H mg/dl
(70-99)
Albumin 3.4 L g/dl
(3.5-5.0)
05/28/23 20:35
05/28/23 20:35
H/h slightly low. Sodium slightly low. Glucose nonfasting. Albumin slightly low. PT 13.3 with INR 1.01, PTT 28.2
Vital Signs
Initial and Last Documented VS:
Initial Vital Signs
Temp Pulse Resp BP Pulse Ox
98.9 F 102 20 152/84 98
05/28/23 19:47 05/28/23 19:47 05/28/23 19:47 05/28/23 19:47 05/28/23 19:47
Last Documented Vital Signs
Temp Pulse Resp BP Pulse Ox
98.9 F 102 20 152/84 98
05/28/23 19:47 05/28/23 19:47 05/28/23 19:47 05/28/23 19:47 05/28/23 19:47
MDM/Problems Addressed
Differential Diagnosis Includes:
Post operative bleeding,
MDM/Problems Addressed:
This is a 83 year old female that comes in with c/o vaginal bleeding. state that this is the fourth visit here. States that she had a polpy removed form the Uterus and was doing good until this evening when she went to the . States that
he was told to bring patient in for admission.
Spoke with Dr. Pascual. Will get labs and Ultrasound, Going to admit but awaiting whose service.
Dr. Pascual would like patient on the hospitalist service. Will admit. Hospitalist notified. Back into see patient and and explained that she will be admitted.
Chronic conditions affecting care:
NA
Acute Exacerbation and/or Progression of Chronic Illness:
Post operative bleeding
*Pulse Oximetry
Patient hypoxic: no
*EKG
Interpreted by ED Provider?: NA
Rate: EKG- N/A
*Radiation Control Health Physicist Interpretation
Rate: Radiation Control Health Physicist- N/A
*Critical Care Note
Total Time (30-74mins, 75-104mins- exclusive of procedures): Not Applicable
ED Attending Note
-
Portions of this chart may have been created with voice recognition software.� Occasional wrong word or��sound alike� substitutions may have occurred due to the inherent limitations of voice recognition software.
Discharge Plan
Departure
Patient Disposition: Admit
Date of Disposition: 05/28/23
Time of Disposition: 21:26
Admit to: Med/Surg
Presentation/result/management discussed w/ accepting MD/DO: Dr. Pascual
Patient with high blood pressure during this ER visit?: Yes
Condition: Good
Covid-19: Not Applicable
Discharge Problem:
Postoperative vaginal bleeding
Prescriptions:
No Action
losartan 50 MG tablet
50 mg PO DAILY
atorvastatin 20 mg tablet
20 mg PO DAILY
Theragen Tablet
1 tab PO DAILY
ascorbic acid (vitamin C) [Vitamin C] 500 mg Tablet
500 mg PO DAILY
timolol maleate 0.5 % drops
1 drp BOTH EYES BID
vitamin E 268 mg (400 unit) Capsule
268 mg PO DAILY
memantine 28 mg capsule,sprinkle,ER 24hr
28 mg PO HS
Referrals:
UNKNOWN - PT DOES,NOT KNOW [Unknown Provider] -
Interventions
Interventions:
*Risk Screen - Suicide Last Done: 05/28/23 19:47
*General Assessment Last Done: 05/28/23 19:47
*Neglect/Abuse Screening Last Done: 05/28/23 19:47
ED- Fall Risk Assessment Last Done: 05/28/23 19:47
*ED COVID-19 Vaccine History Last Done: 05/28/23 19:47
ED-Female Genitourinary Assessment Last Done: 05/28/23 20:46
Discharge Date and Time
Print Language: MALAY
[2023-05-28 20:44] LABS: % Basophils 1.6 % (0-2); % Eosinophils 2.4 % (0-6); % Immature Granulocytes 0.4 % (0-0.5); % Lymphocytes 38.1 % (20.5-51.1); % Monocytes 8.5 % (1.7-9.3); Absolute Basophils 0.1 10^3/uL (0-0.2); Absolute Eosinophils 0.1 10^3/uL (0-0.7); Absolute Lymphocytes 1.9 10^3/uL (1.2-3.4); Absolute Monocytes 0.4 10^3/uL (0.1-0.6); Absolute Neutrophils 2.4 10^3/uL (1.4-6.5); Hematocrit 34.8 % (37.0-47.0); Hemoglobin 11.9 g/dL (12.0-16.0); Mean Corp Hgb Conc. 34.2 g/dL (33.0-37.0); Mean Corpuscular Hgb 29.5 pg (27.0-31.0); Mean Corpuscular Volume 86.1 fL (81.0-99.0); Nucleated Red Blood Cells % 0 %; Red Blood Cell Count 4.04 10^6/uL (4.20-5.40); Red Cell Dist. Width 14.8 % (11.5-14.5); White Blood Cell Count 4.9 10^3/uL (4.8-10.8)
[2023-05-28 20:54] LABS: INR 1.01; PT 13.3 Sec (11.4-14.6)
[2023-05-28 20:55] LABS: APTT 28.2 Sec (23.4-35.0)
[2023-05-28 20:58] LABS: ALT (SGPT) 15 U/L (0-35); AST (SGOT) 23 U/L (14-36); Albumin 3.4 g/dl (3.5-5.0); Alkaline Phosphatase 107 U/L (38-126); Blood Urea Nitrogen 13 mg/dl (7-17); Calcium 8.8 mg/dl (8.4-10.2); Carbon Dioxide 26 mmol/L (22-30); Chloride 104 mmol/L (98-107); Estimated Creatinine Clearance 48 ml/min; Glucose 107 mg/dl (70-99); Potassium 3.8 mmol/L (3.5-5.1); Sodium 134 mmol/L (135-145); Total Bilirubin 0.5 mg/dl (0.2-1.3); Total Protein 6.4 g/dl (6.3-8.2); eGFR > 60.00
[2023-05-28 21:10] LABS: Mean Platelet Volume 8.7 fL (7.4-10.4); Platelet Count 264 10^3/uL (130-400)
[2023-05-28 22:36] VITALS: BP 128/59
--- NOTE | 2023-05-28 23:27 | HPS.HSE ---
Family Physician
-
Family Physician: Ange Barrera
Chief Complaint
-
vaginal bleeding
History of Present Illness
This is a pleasant 83 year old female who arrived with her after experiencing painless vaginal bleeding at home. Apparently back in April 2023 she had a uterine polyp removed and experienced some vaginal bleeding post procedure at that time.
She denies JAIN, CP, SOB, dyspnea, abdominal pain, n/v/d, dysuria or bilateral LE discomfort. No fever or chills. PMH includes dementia, hypercholesterolemia, HTN, and glaucoma.
Medical History
Past Medical History
Past Medical History: Reports Dementia, HTN, Hypercholesterolemia and Psychiatric (dementia Alzheimer's)
Past Surgical History: Reports Other (polyp removal 04/2023)
Social History
Unable to obtain full social history at this time due to: Dementia
Tobacco: Non-smoker
Alcohol: None
Drug: None
Personal:
Living: With Family
Employment: Retired
Family History
Family History: Not pertinent
Allergies / Home Medications
Allergies reflects when Allergies were last updated in [facility].
Home Medications with original date entered in [facility]
Allergy/Medication List:
Allergies
Allergy/AdvReac Type Severity Reaction Status Date / Time
No Known Allergies Allergy Verified 05/28/23 19:46
Home Medications
losartan 50 mg tablet 50 mg PO DAILY 10/13/17
ascorbic acid (vitamin C) 500 mg tablet (Vitamin C) 500 mg PO DAILY 05/28/23
atorvastatin 20 mg tablet 20 mg PO DAILY 05/28/23
memantine 28 mg capsule sprinkle,extended release 24hr 28 mg PO HS 05/28/23
therapeutic multivitamin 1 tab PO DAILY 05/28/23
timolol maleate 0.5 % eye drops 1 drp BOTH EYES BID 05/28/23
vitamin E 268 mg (400 unit) capsule 268 mg PO DAILY 05/28/23
Review of Systems
-
Unable to obtain full review of systems at this time due to: Dementia
History Source: Family
A 12 point ROS was completed and negative except as noted: Yes
Constitutional: Reports No Symptoms
EENT: Reports No Symptoms
Respiratory: Reports No Symptoms
Cardiac: Reports No Symptoms
Abdomen/GI: Reports No Symptoms
: Reports No Symptoms
Musculoskeletal: Reports No Symptoms
Skin: Reports No Symptoms
Neurological: Reports No Symptoms
Endocrine: Reports No Symptoms
Hematologic/Lymphatic: Reports No Symptoms
Psych: Reports No Symptoms
Physical Exam
Vital Signs
Vital Signs
Temp Pulse Resp BP Pulse Ox
98.9 F 82 18 128/59 99
05/28/23 19:47 05/28/23 22:36 05/28/23 22:36 05/28/23 22:36 05/28/23 22:36
Physical Exam
General: Well Developed, Well Nourished and No Apparent Distress
HEENT: NormoCephalic and Moist mucous membranes
Respiratory: Clear and Non Labored Respirations
Cardiac: S1/S2 and Regular Rhythm
Breast: Deferred by me
GI: Soft, Non Tender and Non Distended
Rectal: Deferred by Provider
Genito-urinary: Clear Urine
Musculoskeletal: No Clubbing, No Cyanosis and No Edema
Skin: Warm and Dry
Neuro: Awake, Alert and Nonfocal/grossly intact
Hematologic/Lymphatic: No Lymphadenopathy
Psych: Calm
Laboratory Results
-
05/28/23 20:35
05/28/23 20:35
Laboratory Results
PT 13.3 Sec (11.4-14.6) 05/28/23 20:35
INR 1.01 05/28/23 20:35
APTT 28.2 Sec (23.4-35.0) 05/28/23 20:35
Total Bilirubin 0.5 mg/dl (0.2-1.3) 05/28/23 20:35
AST 23 U/L (14-36) 05/28/23 20:35
ALT 15 U/L (0-35) 05/28/23 20:35
Alkaline Phosphatase 107 U/L (38-126) 05/28/23 20:35
Data Reviewed
-
Lab Data: Labs Reviewed by me
Impression/Plan
-
IMPRESSION: vaginally bleeding
PLAN: This is a pleasant 83 year old female who arrived with her after experiencing painless vaginal bleeding at home. Apparently back in April 2023 she had a uterine polyp removed and experienced some vaginal bleeding post procedure at that
time. She denies JAIN, CP, SOB, dyspnea, abdominal pain, n/v/d, dysuria or bilateral LE discomfort. No fever or chills. PMH includes dementia, hypercholesterolemia, HTN, and glaucoma.
*Vaginal bleeding-Awaiting transvaginal US. pad count. CBC in am.
*HTN: Losartan
*Glaucoma: Timolol eye gtts
*Dementia: Memantine
*DVT prophylaxis: SCDs. oob as able with assist.
*Disposition: FC. Gynecology Service.
[2023-05-28] MEDS: NSS 500 IV (23:33)
[2023-05-28 23:35] VITALS: BP 110/73
--- NOTE | 2023-05-29 00:09 | W.PN.ADMIT ---
Progress Note - Admit
Progress Note - Admit
Agree with H&P as per CARE ASST
I evaluated pt in ED for pelvic exam
Pt history given by as per H&P
On pelvic exam:
Vulva-some dried blood, urethral caruncle noted
Vagina-blood at introitus, but no blood in the vagina on speculum exam
Cervix-no cervical motion tenderness
Uterus-normal, no pain on palpation
Adnexa-nonpalpable
Assessment/Plan: Possible vaginal bleeding-Not clear this is coming from vagina based on exam. Would have expected some blood in vagina. Am concerned this intermittent bleeding is due to the caruncle. Will recheck ultrasound of pelvis. To consider
trial of estradiol cream to the caruncle.
[2023-05-29 01:00] VITALS: BP 154/77
[2023-05-29 01:13] VITALS: BMI 25.1
[2023-05-29] MEDS: NSS 1000 IV (01:41)
[2023-05-29] MEDS: TIMOPTIC 0.5% OPHTHALMIC SOLUTION BOTH EYES (01:41)
--- NOTE | 2023-05-29 02:18 | ED.GENMED ---
History of Present Illness
General
Chief Complaint: Vaginal Bleeding
Time Seen by Provider: 05/28/23 19:58
Travel History
Have you had any contact with someone who has COVID-19?: No
Do you have any symptoms of coronavirus? Fever > 100 degrees, chills, cough, shortness of breath, sore throat, loss of taste or smell, muscle aches, or headache?: No
Past History
Past History
ED Past Medical History: HTN, Hypercholesterolemia and Other (Glaucoma, pneumonia, glaucoma, anemia, Alzheimers, )
ED Past Surgical History: Gynecological (Uterine polyp removed. Tubal, ), Orthopedic (Bilateral carpal tunnel) and Other (Cataract surgery, carpal tunnel)
Social History
Tobacco: Non-smoker
Alcohol: None
Drug: None
Personal:
Living: with family
Employment: Retired
Course
Orders/Labs/Results
Orders:
Orders
05/28/23 20:35
Type+Screen Urgent
Complete Blood Count/With Diff Urgent
Comprehensive Metabolic Panel Urgent
PTT Urgent
Prothrombin Time Urgent
05/28/23 23:15
Admit/Transfer Patient As Directed
Co-Sign Provider:
Level of Care: Observation services
Assign to:: Medical/Surgical
Physician / Group: Benito Pascual/gynecology service
Diagnosis: vaginal bleeding
05/28/23 23:17
Code Status As Directed
Resuscitation Status: Full Code
05/28/23 23:33
0.9% Sodium Chloride 500 ml [Nss] 500 ml IV BOLUS
05/29/23 00:00
US Pelvis W Transvag Combined Urgent
Comment: Polyp removed recently
Reason For Exam: vaginal bleeding
05/29/23 01:15
0.9% Sodium Chloride 1000 ml [Nss] 1,000 ml IV 60 mls/hr
Acetaminophen [Tylenol] 650 mg PO Q4HPRN PRN
Timolol Maleate 0.5% [Timoptic 0.5% Ophthalmic Solution] 1 drop BOTH EYES BID
05/29/23 01:15
Activity As Directed
Activity Level: Out of Bed-Early Mobility
Intake/ Output As Directed
Frequency: Per unit guidelines
Pneumatic Compression Sleeves As Directed
Type: Knee high
Vital Signs As Directed
Frequency: Per unit guidelines
Pulse Ox/spot Check [RESP] Routine
Quantity: 1
DX Deep Vein Thrombosis Video Routine
05/29/23 Breakfast
Cholesterol Lowering
Cholesterol Lowering: Sodium, 2 Gram
Complete Blood Count/No Diff IN AM
05/29/23 08:00
Ascorbic Acid [Vitamin C] 500 mg PO DAILY
Atorvastatin [Lipitor] 20 mg PO DAILY
Losartan [Cozaar] 50 mg PO DAILY
Memantine HCl [Namenda] 10 mg PO BID
Multivitamin [Theragran] 1 tablet PO DAILY
Vitamin E 400 units PO DAILY
Abnormal Lab Results
05/28/23
20:35
RBC 4.04 L 10^6/uL
(4.20-5.40)
Hgb 11.9 L g/dL
(12.0-16.0)
Hct 34.8 L %
(37.0-47.0)
RDW 14.8 H %
(11.5-14.5)
Sodium 134 L mmol/L
(135-145)
Glucose 107 H mg/dl
(70-99)
Albumin 3.4 L g/dl
(3.5-5.0)
05/28/23 20:35
05/28/23 20:35
Vital Signs
Initial and Last Documented VS:
Initial Vital Signs
Temp Pulse Resp BP Pulse Ox
98.9 F 102 20 152/84 98
05/28/23 19:47 05/28/23 19:47 05/28/23 19:47 05/28/23 19:47 05/28/23 19:47
Last Documented Vital Signs
Temp Pulse Resp BP Pulse Ox
98.3 F 82 16 154/77 97
05/29/23 01:00 05/29/23 01:00 05/29/23 01:00 05/29/23 01:00 05/29/23 01:00
ED Attending Note
-
Portions of this chart may have been created with voice recognition software.� Occasional wrong word or��sound alike� substitutions may have occurred due to the inherent limitations of voice recognition software.
Discharge Plan
Departure
Patient Disposition: Admit
Date of Disposition: 05/28/23
Time of Disposition: 21:26
Admit to: Med/Surg
Presentation/result/management discussed w/ accepting MD/DO: Dr. Pascual
Patient with high blood pressure during this ER visit?: Yes
Condition: Good
Covid-19: Not Applicable
Discharge Problem:
Postoperative vaginal bleeding
Interventions
Interventions:
*Risk Screen - Suicide Last Done: 05/29/23 00:58
*General Assessment Last Done: 05/28/23 19:47
*Neglect/Abuse Screening Last Done: 05/28/23 19:47
ED- Fall Risk Assessment Last Done: 05/28/23 19:47
*ED COVID-19 Vaccine History Last Done: 05/29/23 00:56
*Nursing Disposition Last Done: 05/29/23 00:48
ED-Female Genitourinary Assessment Last Done: 05/28/23 20:46
Discharge Date and Time
Discharge Date/Time: 05/29/23 00:48
[2023-05-29 07:51] VITALS: BP 127/72
[2023-05-29 08:35] LABS: Hematocrit 30.4 % (37.0-47.0); Mean Corp Hgb Conc. 32.9 g/dL (33.0-37.0); Mean Corpuscular Hgb 28.9 pg (27.0-31.0); Mean Corpuscular Volume 87.9 fL (81.0-99.0); Mean Platelet Volume 8.8 fL (7.4-10.4); Platelet Count 269 10^3/uL (130-400); Red Blood Cell Count 3.46 10^6/uL (4.20-5.40); Red Cell Dist. Width 14.9 % (11.5-14.5); White Blood Cell Count 5.4 10^3/uL (4.8-10.8)
[2023-05-29] MEDS: LIPITOR 20 MG PO (09:00)
[2023-05-29] MEDS: THERAGRAN 1 TABLET PO (09:00)
[2023-05-29] MEDS: COZAAR 50 MG PO (09:00)
[2023-05-29] MEDS: VITAMIN C 500 MG PO (09:00)
[2023-05-29] MEDS: NAMENDA 10 MG PO (09:00)
[2023-05-29] MEDS: VITAMIN E 400 UNITS PO (09:00)
[2023-05-29] MEDS: TIMOPTIC 0.5% OPHTHALMIC SOLUTION 1 DROP BOTH EYES (09:00)
--- NOTE | 2023-05-29 10:51 | CM ---
Patient seen bedside with spouse.
Patient lives in a split level home with no steps to enter, 6 steps between floors.
No assistive devices at home.
Patient does not drive.
No hx VN.
OLIVERA completed.
PCP: Dr Barrera
Pharmacy: [facility]
Plan: home no needs.
--- NOTE | 2023-05-29 11:53 | W.PN.OBG.DWH ---
Today's Communication / Plan
-
d/c home with script for vaginal estrogen cream
reviewed instructions with pt and husb
will verify time for postop visit
Assessment/Plan
-
vaginal bleeding
h/o d and C 06 May: polyps, benign path
urethral caruncle per exam 05/27
Subjective Data
-
no complaints, no vaginal bleeding per RN, elenab at bedside
Objective Data
-
Laboratory Results
05/29/23 07:49
05/28/23 20:35
Vital Signs
Temp Pulse Resp BP Pulse Ox
98.3 F 78 16 127/72 93
05/29/23 07:51 05/29/23 07:51 05/29/23 07:51 05/29/23 07:51 05/29/23 09:00
vulvavagina. No active bleeding noted. suboptimal exam in bed.
pelvic us: limited views. pt could not tolerate full study
[2023-05-29 15:00] VITALS: BP 145/102
== END 2023-05-29 16:08 | disposition home or self-care (01) ==
LOC: 4 WEST ACU 23:36
PROVIDERS: Emergency Medicine; Registered Nurse; ADMITTING PHYSICIAN Obstetrics & Gynecology; EMERGENCY PHYSICIAN Emergency Medicine; FAMILY PHYSICIAN Family Medicine
DX: N99.820 Postprocedural hemorrhage of a genitourinary system organ or structure following a genitourinary system procedure (principal); Y83.8 Other surgical procedures as the cause of abnormal reaction of the patient, or of later complication, without mention of misadventure at the time of the procedure; Y76.0 Diagnostic and monitoring obstetric and gynecological devices associated with adverse incidents; Y92.9 Unspecified place or not applicable; N93.9 Abnormal uterine and vaginal bleeding, unspecified; I10 Essential (primary) hypertension; E78.00 Pure hypercholesterolemia, unspecified; G30.9 Alzheimer's disease, unspecified; F02.80 Dementia in other diseases classified elsewhere, unspecified severity, without behavioral disturbance, psychotic disturbance, mood disturbance, and anxiety
CPT/HCPCS: 76830; 76856; 80053; 85025; 85027; 85610; 85730; 86850; 86900; 86901; 99285; G0378

== ENCOUNTER 2024-01-18 06:58 | Emergency (ER) | payer MEDICARE, BC, SELFPAY ==
[2024-01-18 07:01] VITALS: BP 128/94
[2024-01-18 07:43] VITALS: BMI 25.1
--- NOTE | 2024-01-18 07:46 | ED.GENMED ---
History of Present Illness
General
Chief Complaint: Musculo-Skeletal Complaint
Source: patient
Exam Limitations: none
Time Seen by Provider: 01/18/24 07:20
Nursing documentation reviewed up to this point in time: agreed with
History of Present Illness
History of Present Illness:
Patient is an 83-year-old female past medical history dementia brought by for evaluation. reports patient woke up around 3 AM complaining of intense right leg pain. Triage note states left leg pain but has not reports that his
right leg. Patient does have dementia and is a limited historian. reports patient woke up this morning complaining of the same pain as well. He denies any injury and reports he is not aware of any recent falls. He reports no fevers no
swelling or redness. reports patient seems better however since being here in the hospital. Patient denies any leg pain now.
Past History
Past History
ED Past Medical History: HTN, Hypercholesterolemia and Other (Glaucoma, pneumonia, glaucoma, anemia)
ED Past Surgical History: Other (Cataract surgery,carpal tunnel)
Social History
Tobacco: Non-smoker
Alcohol: None
Drug: None
Personal:
Living: with family
Employment: Retired
Review of Systems
Review of Systems
Allergies reviewed?: Yes
Unable to obtain full review of systems at this time due to: dementia
Other source history: family
All Other Systems: ROS reviewed and negative except as documented in HPI and ROS
Constitutional: Reports no symptoms; Denies fever, fatigue or chills
EENT: Reports no symptoms
Respiratory: Reports no symptoms
Cardiac: Reports no symptoms
ABD/GI: Reports no symptoms
Musculoskeletal: Reports other (right leg pain x2 last night; pt c/o of low back pain with sitting up in stretcher )
Skin: Reports no symptoms
Neurological: Reports no symptoms
Psychiatric: Reports no symptoms
Phy Exam
General Physical Exam
General Presentation: no apparent distress
General age: appears stated age
General Skin: warm and dry
General Habitus: elderly
General Mental: alert and other (Mildly confused which is baseline for patient; however able to answer questions )
Neurological Exam
Neurological Exam: alert
Musculoskeletal Exam
Musculoskeletal Exam: other (Normal inspection to right lower extremity; full range of motion to right hip with no erythema or swelling no calf tenderness; normal low back exam (pt c/o of 'sore lower back' no bony midline back tenderness no muscle
tenderness normal inspection)
Skin Exam
Skin Exam: normal color and warm/dry
Psychiatric Exam
Psychiatric Exam: normal mood/affect
Course
Orders/Labs/Results
Orders:
Orders
01/18/24 07:44
Lumbar Spine Complete, 4 View [CR Lumbar Spine Comp Min 4 Vw*] Urgent
Comment:
Reason For Exam: low back pain and right leg pain
01/18/24 07:45
Venous Doppler Lwr Ext Rt [US Periph Venous LOWER Ext RT] Urgent
Comment:
Reason For Exam: pain in right leg
01/18/24 07:55
Complete Blood Count/With Diff Urgent
Comprehensive Metabolic Panel Urgent
Abnormal Lab Results
01/18/24
07:55
RBC 3.82 L 10^6/uL
(4.20-5.40)
Hgb 11.0 L g/dL
(12.0-16.0)
Hct 34.4 L %
(37.0-47.0)
MCHC 32.0 L g/dL
(33.0-37.0)
Glucose 105 H mg/dl
(70-99)
01/18/24 07:55
01/18/24 07:55
Vital Signs
Initial and Last Documented VS:
Initial Vital Signs
Temp Pulse Resp BP Pulse Ox
98.3 F 97 16 128/94 98
01/18/24 07:01 01/18/24 07:01 01/18/24 07:01 01/18/24 07:01 01/18/24 07:01
Last Documented Vital Signs
Temp Pulse Resp BP Pulse Ox
98.3 F 95 18 122/60 99
01/18/24 07:01 01/18/24 10:39 01/18/24 10:39 01/18/24 10:39 01/18/24 10:39
Psychiatric Cns consulted with Physician
Psychiatric Cns consulted with physician?: Yes
Name of Physician Consulted: Shawna
MDM/Problems Addressed
MDM/Problems Addressed:
83-year-old female with dementia brought by who reported patient awoken in the middle the night and then this morning with complaints of right leg pain however he reports patient seems fine now. No obvious injury he does not report any
recent falls she is pleasantly confused but awake alert she denies any pain now. Her exam is normal with no abnormalities on inspection to right leg she has full range of motion to the leg including hip. She was able to ambulate here in no acute
distress no swelling no redness no fevers. Her white count is normal. Her chemistries including potassium are unremarkable. Ultrasound was done and negative. Patient complained of mild soreness to low back however on exam there is no obvious
findings and she is in no acute distress here. I did review x-ray findings of low back x-ray was done to rule out any injury in case patient fell and was unaware because she has dementia. X-ray does mention likely degenerative disc disease however
it is mention that osteomyelitis and discitis is also on the differential consideration however patient with no clinical concern for this on exam again she has remained asymptomatic here in the ER ambulated without difficulty and is no acute
distress possible muscle spasm leg cramp discussed with to follow-up with family doctor next of days and return if any worsening of symptoms
Chronic conditions affecting care:
dementia
*Radiology
Radiology exam reviewed: radiology read reviewed
*Pulse Oximetry
Patient hypoxic: no
*Critical Care Note
Total Time (30-74mins, 75-104mins- exclusive of procedures): Not Applicable
ED Attending Note
-
Portions of this chart may have been created with voice recognition software.� Occasional wrong word or��sound alike� substitutions may have occurred due to the inherent limitations of voice recognition software.
Discharge Plan
Departure
Patient Disposition: Home (Routine Discharge)
Date of Disposition: 01/18/24
Time of Disposition: 10:26
Patient with high blood pressure during this ER visit?: Yes
Condition: Fair
Covid-19: Not Applicable
Discharge Problem:
leg pain
Prescriptions:
No Action
losartan 50 MG tablet
50 mg PO DAILY
atorvastatin 20 mg tablet
20 mg PO DAILY
therapeutic multivitamin Tablet
1 tab PO DAILY
ascorbic acid (vitamin C) [Vitamin C] 500 mg Tablet
500 mg PO DAILY
timolol maleate 0.5 % drops
1 drp BOTH EYES BID
vitamin E 268 mg (400 unit) Capsule
268 mg PO DAILY
memantine 28 mg capsule,sprinkle,ER 24hr
28 mg PO HS
Referrals:
Ange Barrera MD [Family Provider] -
Activity Restrictions/Additional Instructions:
as discussed there is no obvious cause for patient's pain .
it is possible that this was a muscle cramp. Patient was able to walk normally here in the ER. Closely follow-up with family doctor the next several days and return if any worsening of symptoms if increased pain leg swelling redness fever chills
back pain or any further concerns
Interventions
Interventions:
*Risk Screen - Suicide Last Done: 01/18/24 07:01
*General Assessment Last Done: 01/18/24 07:43
*Neglect/Abuse Screening Last Done: 01/18/24 07:01
ED- Fall Risk Assessment Last Done: 01/18/24 07:43
*ED COVID-19 Vaccine History Last Done: 01/18/24 07:43
*Nursing Disposition Last Done: 01/18/24 10:39
ED-Musculoskeletal Assessment Last Done: 01/18/24 07:43
Discharge Date and Time
Discharge Date/Time: 01/18/24 10:40
Print Language: [place]
[2024-01-18 07:52] VITALS: BP 127/65
[2024-01-18 08:00] VITALS: BP 122/61
[2024-01-18 08:12] LABS: % Basophils 1.3 % (0-2); % Eosinophils 3.3 % (0-6); % Immature Granulocytes 0.2 % (0-0.5); % Lymphocytes 36.7 % (20.5-51.1); % Neutrophils 49.5 % (42.2-75.2); Absolute Basophils 0.1 10^3/uL (0-0.2); Absolute Eosinophils 0.2 10^3/uL (0-0.7); Absolute Lymphocytes 1.9 10^3/uL (1.2-3.4); Absolute Monocytes 0.5 10^3/uL (0.1-0.6); Absolute Neutrophils 2.6 10^3/uL (1.4-6.5); Hematocrit 34.4 % (37.0-47.0); Mean Corpuscular Hgb 28.8 pg (27.0-31.0); Mean Corpuscular Volume 90.1 fL (81.0-99.0); Mean Platelet Volume 8.6 fL (7.4-10.4); Nucleated Red Blood Cells % 0 %; Platelet Count 253 10^3/uL (130-400); Red Blood Cell Count 3.82 10^6/uL (4.20-5.40); Red Cell Dist. Width 13.8 % (11.5-14.5); White Blood Cell Count 5.2 10^3/uL (4.8-10.8)
[2024-01-18 08:22] LABS: ALT (SGPT) 16 U/L (0-35); AST (SGOT) 25 U/L (14-36); Albumin 3.5 g/dl (3.5-5.0); Alkaline Phosphatase 75 U/L (38-126); Blood Urea Nitrogen 13 mg/dl (7-17); Calcium 8.6 mg/dl (8.4-10.2); Carbon Dioxide 30 mmol/L (22-30); Chloride 105 mmol/L (98-107); Estimated Creatinine Clearance 48 ml/min; Glucose 105 mg/dl (70-99); Potassium 3.9 mmol/L (3.5-5.1); Sodium 141 mmol/L (135-145); Total Bilirubin 0.9 mg/dl (0.2-1.3); Total Protein 6.3 g/dl (6.3-8.2); eGFR > 60.00
[2024-01-18 10:39] VITALS: BP 122/60
== END 2024-01-18 10:40 | disposition home or self-care (01) ==
LOC: EMR 06:58
PROVIDERS: Nurse Practitioner; EMERGENCY PHYSICIAN Emergency Medicine; FAMILY PHYSICIAN Family Medicine
DX: M79.604 Pain in right leg (principal); M54.50 Low back pain, unspecified; F03.90 Unspecified dementia, unspecified severity, without behavioral disturbance, psychotic disturbance, mood disturbance, and anxiety; I10 Essential (primary) hypertension
CPT/HCPCS: 99285; 72110; 80053; 85025; 93971

== ENCOUNTER 2024-07-22 20:44 | Emergency (ER) | payer MEDICARE, BC, SELFPAY ==
[2024-07-22 20:49] VITALS: BP 148/68
[2024-07-22 20:53] VITALS: BP 148/68
[2024-07-22 21:00] VITALS: BP 130/66
[2024-07-22 21:07] VITALS: BMI 25.6
[2024-07-22 22:00] VITALS: BP 134/66
--- NOTE | 2024-07-22 22:30 | ED.GENMED ---
History of Present Illness
General
Chief Complaint: Fall
Source: spouse
Exam Limitations: none
Time Seen by Provider: 07/22/24 22:28
Nursing documentation reviewed up to this point in time: agreed with
History of Present Illness
History of Present Illness:
The patient is an 84-year-old female with a past medical history of dementia brought in by her family for 2 falls over the last 2 days. The family reports that it seems as though ' her left leg keeps buckling and giving out' which they believe has
caused the falls. There have been no head strikes. The patient only complains of pain behind her left knee. The family is worried she could possibly have a blood clot in her left leg. She denies neck pain and back pain. The family reports she
is acting as usual and they deny any recent fever or cough. The family denies any concerns for stroke, as they have not noticed any weakness on one side of her body. Patient is a vague historian due to her dementia but seems to have pain behind
her left knee.
Past History
Past History
ED Past Medical History: HTN, Hypercholesterolemia and Other (Glaucoma, pneumonia, glaucoma, anemia, dementia)
ED Past Surgical History: Other (Cataract surgery,carpal tunnel)
Social History
Tobacco: Non-smoker
Alcohol: None
Drug: None
Personal:
Living: with family
Employment: Retired
Family History
Family History: Other
Review of Systems
Review of Systems
Allergies reviewed?: Yes
All Other Systems: ROS reviewed and negative except as documented in HPI and ROS
Constitutional: Reports no symptoms
EENT: Reports no symptoms
Respiratory: Reports no symptoms
Cardiac: Reports no symptoms
ABD/GI: Reports no symptoms
: Reports no symptoms
Musculoskeletal: Reports joint pain
Skin: Reports no symptoms
Neurological: Reports no symptoms
Endocrine: Reports no symptoms
Hematologic/Lymphatic: Reports no symptoms
Psychiatric: Reports no symptoms
Phy Exam
Physical Exam
Physical Exam:
Physical Exam
General: no apparent distress, not acutely ill. Patient is smiling, calm, cooperative. No sign of any trauma or areas of tenderness on scalp or face
Neck: supple. Nontender C-spine
Heart: s1/s2 regular rate and rhythm, no murmur. No chest wall tenderness
Lungs: no acute respiratory distress. clear bilaterally
Abdomen: Soft, nontender. No vertebral spine tenderness
Neuro: alert and oriented to self and place. no focal neurological deficits. Moves all extremities equally. Equal sensation bilaterally
Skin: no rash
Psychiatric: well kept. interactive and cooperative
Extremities: Mild fullness and soft tissue tenderness of posterior left knee. Nontender hips and pelvis. Nontender upper extremities bilaterally
Course
Orders/Labs/Results
Orders:
Orders
07/22/24 22:43
Hip, Left 2-3 Views [CR Hip - LT w/wo Pel 2-3 Vw*] Urgent
Comment:
Reason For Exam: twisted left knee
Include a pelvis x-ray?: Yes
Knee, Left 4 or More Views [CR Knee - Left 4 Or More View*] Urgent
Comment:
Reason For Exam: pain
07/22/24 22:44
US Legs, Left [US Periph Venous LOWER Ext LT] Urgent
Comment:
Reason For Exam: posterior L knee pain
Vital Signs
Initial and Last Documented VS:
Initial Vital Signs
BP
148/68
07/22/24 20:49
Last Documented Vital Signs
Temp Pulse Resp BP Pulse Ox
98.7 F 79 15 132/70 89
07/22/24 20:53 07/22/24 20:53 07/22/24 20:53 07/22/24 23:00 07/22/24 23:45
MDM/Problems Addressed
Differential Diagnosis Includes:
Left knee fracture, left patellar fracture, ligamentous strain of left knee
MDM/Problems Addressed:
Patient presents with acute left knee pain
*Radiology
Radiology exam reviewed: preliminary read by ED provider (Left hip and left knee x-ray reviewed by me. No acute fracture seen) and radiology read reviewed
*Pulse Oximetry
Patient hypoxic: no
*EKG
Interpreted by ED Provider?: NA
*Brush Maker Machine Interpretation
Rate: Brush Maker Machine- N/A
*Critical Care Note
Total Time (30-74mins, 75-104mins- exclusive of procedures): Not Applicable
Data Reviewed
Source: family
Patient Management
Social determinants of health affecting care: Living situation and Strong social support
Escalation/DeEscalation of care consider admission/obs:
Patient has no sign of head or neck trauma. There is no sign of stroke. Family reports she is acting normally without any recent cough or fever. Therefore, I do not feel any blood work is necessary. It is possible that patient has a change of
proprioception in her left leg due to the Lincoln's cyst. It is possible when her left leg gave out, that she could have suffered ligamentous injury of the left knee. Patient placed in Christiano wrap and encouraged to follow-up with her primary care
doctor and likely orthopedics
ED Attending Note
-
Portions of this chart may have been created with voice recognition software.� Occasional wrong word or��sound alike� substitutions may have occurred due to the inherent limitations of voice recognition software.
Discharge Plan
Departure
Patient Disposition: Home (Routine Discharge)
Date of Disposition: 07/23/24
Time of Disposition: 00:04
Patient with high blood pressure during this ER visit?: Yes
Condition: Good
Covid-19: Not Applicable
Discharge Problem:
Strain of left knee, Lincoln's cyst of knee
Instructions: Lincoln's Cyst (DC), Preventing falls in adults, Ligament Injuries in the Knee, BLOOD PRESSURE
Prescriptions:
No Action
losartan 50 MG tablet
50 mg PO DAILY
atorvastatin 20 mg tablet
20 mg PO DAILY
therapeutic multivitamin Tablet
1 tab PO DAILY
ascorbic acid (vitamin C) [Vitamin C] 500 mg Tablet
500 mg PO DAILY
timolol maleate 0.5 % drops
1 drp BOTH EYES BID
vitamin E 268 mg (400 unit) Capsule
268 mg PO DAILY
memantine 28 mg capsule,sprinkle,ER 24hr
28 mg PO HS
Referrals:
Ange Barrera MD [Family Provider, [facility]]
Activity Restrictions/Additional Instructions:
Wear an Christiano wrap to support the left knee as needed for continued knee pain. Please follow-up with your primary care doctor within 1 week. You will likely need to be seen by an orthopedist if your left knee pain continues.
Interventions
Interventions:
*Risk Screen - Suicide Last Done: 07/22/24 20:59
*General Assessment Last Done: 07/22/24 20:59
*Neglect/Abuse Screening Last Done: 07/22/24 20:59
*ED- Fall Risk Assessment Last Done: 07/22/24 20:59
*ED COVID-19 Vaccine History Last Done: 07/22/24 20:59
*Nursing Disposition Last Done: 07/23/24 00:25
ED-Musculoskeletal Assessment Last Done: 07/22/24 20:59
ED- Neurological Assessment Last Done: 07/22/24 20:59
ED-Skin Assessment Last Done: 07/22/24 20:59
Discharge Date and Time
Discharge Date/Time: 07/23/24 00:27
Print Language: [place]CC[place]
[2024-07-22 23:00] VITALS: BP 132/70
== END 2024-07-23 00:27 | disposition home or self-care (01) ==
LOC: EMR 20:44
PROVIDERS: EMERGENCY PHYSICIAN Emergency Medicine; FAMILY PHYSICIAN Family Medicine
DX: S86.912A Strain of unspecified muscle(s) and tendon(s) at lower leg level, left leg, initial encounter (principal); W19.XXXA Unspecified fall, initial encounter; M71.22 Synovial cyst of popliteal space [Baker], left knee; I10 Essential (primary) hypertension; E78.00 Pure hypercholesterolemia, unspecified; F03.90 Unspecified dementia, unspecified severity, without behavioral disturbance, psychotic disturbance, mood disturbance, and anxiety
CPT/HCPCS: 99284; 73502; 73564; 93971

== ENCOUNTER → 2024-10-03 18:23 | Outpatient (REF) | payer MEDICARE, BC, SELFPAY ==
[2024-10-03 21:13] LABS: Urine Character Cloudy (Clear)
[2024-10-03 21:31] LABS: Urine Squamous Cell >30 /LPF (Few)
[2024-10-03 21:32] LABS: Urine Red Blood Cell 0-2 /HPF (0-2); Urine White Cell 50-60 /HPF (0-5)
== END ==
LOC: OLABPG 18:23
PROVIDERS: ATTENDING PHYSICIAN Nurse Practitioner Gerontology
DX: N39.0 Urinary tract infection, site not specified (principal)
CPT/HCPCS: 81003; 81015; 87077; 87086